=== PATIENT | male | born 1995 | race Caucasian/White ===

== ENCOUNTER 2016-12-30 13:59 | Emergency (ER) | payer MEDICAID, OTHER ==
[~2016-12-30] VITALS: Ht 170.2 cm; Wt 136.1 kg
[2016-12-30 14:20] LABS: BASOPHILS % (AUTO) 0 % (0-10); EOSINOPHILS # (AUTO) 0.1 10^3/uL (0.0-0.3); EOSINOPHILS % (AUTO) 1 % (0-10); LYMPHOCYTES # (AUTO) 1.8 X 10^3 (1.0-4.0); LYMPHOCYTES % (AUTO) 13 % (12-44); MEAN CORPUSCULAR HEMOGLOBIN 28 PG (25-34); MEAN CORPUSCULAR HGB CONC 33 G/DL (32-36); MEAN CORPUSCULAR VOLUME 84 FL (80-99); MEAN PLATELET VOLUME 9.8 FL (7.4-10.4); MONOCYTES % (AUTO) 7 % (0-12); NEUTROPHILS # (AUTO) 11.6 X 10^3 (1.8-7.8); NEUTROPHILS % (AUTO) 79 % (42-75); PLATELET COUNT 352 10^3/uL (130-400); RED BLOOD COUNT 5.22 10^6/uL (4.35-5.85); RED CELL DISTRIBUTION WIDTH 13.9 % (10.0-14.5); WHITE BLOOD COUNT 14.5 10^3/uL (4.3-11.0)
[2016-12-30 14:37] LABS: BAND NEUTROPHILS 4 %; LYMPHOCYTES % (MANUAL) 8 %; NEUTROPHILS % (MANUAL) 84 %
[2016-12-30 14:41] LABS: BILIRUBIN,URINE NEGATIVE (NEGATIVE); KETONES,URINE 1+ (NEGATIVE); LEUKOCYTE ESTERASE ,URINE 1+ (NEGATIVE); NITRITE,URINE NEGATIVE (NEGATIVE); PH,URINE 6 (5-9); PROTEIN,URINE 4+ (NEGATIVE); UROBILINOGEN,URINE NORMAL (NORMAL)
[2016-12-30 14:43] LABS: ALANINE AMINOTRANSFERASE 82 U/L (0-55); ALBUMIN 3.8 G/DL (3.2-4.5); ANION GAP 13 MMOL/L (5-14); ASPARTATE AMINO TRANSFERASE 67 U/L (5-34); BLOOD UREA NITROGEN 15 MG/DL (7-18); BUN/CREATININE RATIO 13; CALCIUM 8.8 MG/DL (8.5-10.1); CARBON DIOXIDE 23 MMOL/L (21-32); CHLORIDE 102 MMOL/L (98-107); CREATININE SERUM 1.13 MG/DL (0.60-1.30); GFR ESTIMATED > 60; GLUCOSE 173 MG/DL (70-105); POTASSIUM 3.9 MMOL/L (3.6-5.0); SODIUM 138 MMOL/L (135-145)
[2016-12-30 14:47] LABS: WBC,URINE 50-100 /HPF
--- NOTE | 2016-12-30 15:02 | ED Abdominal Pain ---
General Chief Complaint: Cardiac/General Problems Stated Complaint: HIGH BLOOD PRESSURE, VOMITING Nursing Triage Note: ARRIVED VIA AMBULATORY FROM [facility]. PT WAS THERE FOR VOMITING ET THEY FOUND PT TO HAVE HYPERTENSION ALSO THAT THEY COULD NOT BRING DOWN. IVF AND ZOFRAN GIVEN AT CLINIC. PT DENIES NAUSEA AT THIS TIME. Sepsis Screen: No Definite Risk Source of Information: Patient Exam Limitations: No Limitations History of Present Illness Time Seen By Provider: 14:58 Initial Comments The patient is a 21-year-old who was sent here from [facility]. The patient had presented there with complaints of vomiting for the past 3 weeks. It was found that the blood pressure was significantly elevated. The patient was given Zofran a liter of IV fluids but no antihypertensives and blood pressure remained quite high and referral was made for the ER. There is a history of blood pressure problems for several years. There is also a family history of hypertension. Medications were used in the past but it is not clear what these might have been. There is no nerve logic component to this nor is there any blurred vision. Timing/Duration: Other (3 weeks) Severity/Quality: Moderate Location: Generalized Abdomen Allergies and Home Medications Allergies Coded Allergies: No Known Drug Allergies (Unverified , 12/30/16) Home Medications No Active Prescriptions or Reported Meds Review of Systems Constitutional: see HPI EENTM: No Symptoms Reported Respiratory: No Symptoms Reported Cardiovascular: No Symptoms Reported Gastrointestinal: Abdominal Pain, Nausea, Vomiting Genitourinary: No Symptoms Reported Musculoskeletal: no symptoms reported Skin: no symptoms reported Psychiatric/Neurological: No Symptoms Reported Endocrine: No Symptoms Reported Hematologic/Lymphatic: No Symptoms Reported Past Errflrt-Vnadgs-Enspww Hx Patient Social History Alcohol Use: Occasionally Uses Recreational Drug Use: Yes (POT BUT NOT SINCE JULY) Smoking Status: Former Smoker Recent Foreign Travel: No Contact w/Someone Who Travel: No Recent Infectious Disease Expo: No Recent Hopitalizations: No Surgeries Surgeries: Tonsillectomy Respiratory Respiratory Disorders: Sleep Apnea Physical Exam Vital Signs VS - Last 72 Hours, by Label 12/30/16 14:15 Temp 98.1 Pulse 99 Resp 16 B/P (MAP) 179/125 Pulse Ox 95 O2 Delivery Room Air Capillary Refill : Less Than 3 Seconds General Appearance: mild distress HEENT: normal ENT inspection Neck: non-tender, full range of motion, supple, normal inspection Respiratory: chest non-tender, lungs clear, normal breath sounds, no respiratory distress, no accessory muscle use Gastrointestinal: normal bowel sounds, non tender, soft, no organomegaly, no pulsatile mass Extremities: normal range of motion, non-tender, normal inspection, no pedal edema, no calf tenderness, normal capillary refill, pelvis stable 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, no motor/sensory deficits, alert, normal mood/affect, oriented x 3 Skin: normal color, warm/dry Lymphatic: no adenopathy Progress/Results/Core Measures Results/Orders Lab Results Laboratory Tests Test 12/30/16 14:15 12/30/16 14:35 Range/Units White Blood Count 14.5 H 4.3-11.0 10^3/uL Red Blood Count 5.22 4.35-5.85 10^6/uL Hemoglobin 14.5 11.5-16.0 G/DL Hematocrit 44 35-52 % Mean Corpuscular Volume 84 80-99 FL Mean Corpuscular Hemoglobin 28 25-34 PG Mean Corpuscular Hemoglobin Concent 33 32-36 G/DL Red Cell Distribution Width 13.9 10.0-14.5 % Platelet Count 352 130-400 10^3/uL Mean Platelet Volume 9.8 7.4-10.4 FL Neutrophils (%) (Auto) 79 H 42-75 % Lymphocytes (%) (Auto) 13 12-44 % Monocytes (%) (Auto) 7 0-12 % Eosinophils (%) (Auto) 1 0-10 % Basophils (%) (Auto) 0 0-10 % Neutrophils # (Auto) 11.6 H 1.8-7.8 X 10^3 Lymphocytes # (Auto) 1.8 1.0-4.0 X 10^3 Monocytes # (Auto) 1.0 0.0-1.0 X 10^3 Eosinophils # (Auto) 0.1 0.0-0.3 10^3/uL Basophils # (Auto) 0.0 0.0-0.1 10^3/uL Neutrophils % (Manual) 84 % Lymphocytes % (Manual) 8 % Monocytes % (Manual) 4 % Band Neutrophils 4 % Toxic Granulation 1+ Blood Morphology Comment NORMAL Sodium Level 138 135-145 MMOL/L Potassium Level 3.9 3.6-5.0 MMOL/L Chloride Level 102 98-107 MMOL/L Carbon Dioxide Level 23 21-32 MMOL/L Anion Gap 13 5-14 MMOL/L Blood Urea Nitrogen 15 7-18 MG/DL Creatinine 1.13 0.60-1.30 MG/DL Estimat Glomerular Filtration Rate > 60 BUN/Creatinine Ratio 13 Glucose Level 173 H 70-105 MG/DL Calcium Level 8.8 8.5-10.1 MG/DL Total Bilirubin 1.0 0.1-1.0 MG/DL Aspartate Amino Transf (AST/SGOT) 67 H 5-34 U/L Alanine Aminotransferase (ALT/SGPT) 82 H 0-55 U/L Alkaline Phosphatase 44 40-136 U/L Total Protein 6.0 L 6.4-8.2 G/DL Albumin 3.8 3.2-4.5 G/DL Urine Color YELLOW Urine Clarity VERY CLOUDY H Urine pH 6 5-9 Urine Specific [place] 1.020 1.016-1.022 Urine Protein 4+ NEGATIVE Urine Glucose (UA) NEGATIVE NEGATIVE Urine Ketones 1+ H NEGATIVE Urine Nitrite NEGATIVE NEGATIVE Urine Bilirubin NEGATIVE NEGATIVE Urine Urobilinogen NORMAL NORMAL MG/DL Urine Leukocyte Esterase 1+ H NEGATIVE Urine RBC (Auto) 1+ H NEGATIVE Urine RBC NONE /HPF Urine WBC 50-100 H /HPF Urine Crystals NONE /LPF Urine Bacteria LARGE H /HPF Urine Casts PRESENT /LPF Urine White Blood Cell Casts 2-5 H /LPF Urine Mucus MODERATE H /LPF Urine Culture Indicated YES My Orders Orders - DENNY NAVARRO MD Cbc With Automated Diff (12/30/16 14:09) Comprehensive Metabolic Panel (12/30/16 14:09) Ua Culture If Indicated (12/30/16 14:09) Manual Differential (12/30/16 14:15) Urine Culture (12/30/16 14:35) Ct Head Wo (12/30/16 15:45) Hydralazine Injection (Apresoline Inject (12/30/16 15:45) Vital Signs/I&O Vital Sign - Last 12Hours 12/30/16 14:15 Temp 98.1 Pulse 99 Resp 16 B/P (MAP) 179/125 Pulse Ox 95 O2 Delivery Room Air Blood Pressure Mean: 143 Departure Communication Progress Notes CT scan of the head showed no intracranial pathology that might of been associated with hypertension and vomiting. Blood pressure has improved greatly. The UA shows the likelihood of a urinary tract infection. Impression Impression: Primary Impression: severe hypertension Additional Impression: urinary tract infection Disposition: HOME, SELF-CARE Condition: Improved Departure-Patient Inst. Decision time for Depature: 16:39 Referrals: NO,LOCAL PHYSICIAN (PCP) Primary Care Physician Add. Discharge Instructions: All discharge instructions reviewed with patient and/or family. Voiced understanding. Take Zofran as needed for nausea Use lisinopril as directed Have PC P appointment in approximately 2 weeks to evaluate blood pressure Scripts Ondansetron (Zofran Odt) 8 Mg Tab.rapdis 8 MG PO 4 times a day Y for nausea vomiting, #20 TAB Prov: DENNY NAVARRO MD 12/30/16 Cefdinir (Cefdinir) 300 Mg Capsule 300 MG PO twice a day, #14 CAP Prov: DENNY NAVARRO MD 12/30/16 Lisinopril (Lisinopril) 20 Mg Tablet 20 MG PO DAILY for 30 Days, #30 TAB Prov: DENNY NAVARRO MD 12/30/16 DENNY NAVARRO MD December 30, 2016 15:02
[2016-12-30] MEDS ORDERED: hydrALAZINE (APESOLINE) 20 MG/ML VIAL IV ONE (15:45)
--- NOTE | 2016-12-30 16:17 | Diagnostic Imaging Report ---
PROCEDURE: CT head without contrast. TECHNIQUE: Multiple contiguous axial images were obtained through the brain without the use of intravenous contrast. INDICATION: Hypertension. Nausea. COMPARISON: None. FINDINGS: No acute intracranial hemorrhage, mass effect or edema is seen. The urrutia-white junction is preserved. Ventricles appear normal. No focal abnormality is demonstrated. The paranasal sinuses and mastoids are clear, as visualized. IMPRESSION: No evidence of an acute intracranial abnormality. Dictated by: Dictated on workstation # [id number]
[2016-12-30] MEDS ORDERED: CEFD300C3 PO (16:44)
[2016-12-30] MEDS ORDERED: LISI-552 PO (16:44)
[2016-12-30] MEDS ORDERED: ONDA8TAB9 PO (16:44)
[2016-12-30] MEDS ORDERED: ONDANSETRON 4 MG/2 ML (SDV) Z0FRAN IVP ONE (16:45)
[2016-12-30 17:04] VITALS: BP 132/112
== END 2016-12-30 17:04 | disposition home or self-care (01) ==
LOC: EDSEX 14:02 → ER 14:02
DX: I16.0 Hypertensive urgency (principal); N39.0 Urinary tract infection, site not specified; Z87.891 Personal history of nicotine dependence
CPT/HCPCS: 36415; 70450; 80053; 81000; 85007; 85027; 87088; 96374

== ENCOUNTER → 2017-02-08 | Outpatient (CLI) | payer MEDICAID, OTHER ==
[~2017-02-08] MED LIST: AMLO10TA2 PO; CEFD300C3 PO; FURO-124 PO; LISI-552 PO; LISI40TA PO; NF-MET200T PO; ONDA8TAB9 PO; POTA10CA43 PO
== END ==
LOC: RAD 07:48
PROVIDERS: ATTEND Internal Medicine
DX: R11.2 Nausea with vomiting, unspecified (principal)